=== PATIENT | female | born 1990 | race Two or more races ===

== ENCOUNTER 2019-11-24 17:12 | Emergency (ER) | payer BC, OTHER ==
[~2019-11-24] VITALS: Ht 157.5 cm; Wt 54.9 kg
[2019-11-24 17:42] VITALS: BP 133/86
[2019-11-24] MEDS ORDERED: IBUPROFEN 600 MG TABLET PO ONE ×2 (18:00→18:09)
--- NOTE | 2019-11-24 19:10 | NUR ---
Patient discharged to home in stable condition. Written and verbal after care instructions given. Patient verbalizes understanding of instruction.
== END 2019-11-24 19:20 | disposition home or self-care (01) ==
LOC: ER 17:16
DX: R51 Headache (principal)
CPT/HCPCS: 70450-TC